=== PATIENT | male | born 1970 | race Caucasian/White ===

== ENCOUNTER → 2018-06-28 | Outpatient (CLI) | payer OTHER ==
--- NOTE | ~2018-06-28 | 2DMMODE ---
[facility] [place] [address] 2 D/M-MODE ECHOCARDIOGRAM Name: RABIA IRAHETA Room #: REG [facility]#: [id number] Admission: 06/28/18 Attend Phys: Car Munoz MD Discharge: Date of : 70 Date of Service: 06/28/18 1431 Report #: [id number] THIS REPORT FOR: //name// APPROVED REPORT Study performed: 06/28/2018 13:23:48 EXAM: Comprehensive 2D, Doppler, and color-flow Echocardiogram Patient Location: Out-Patient Room #: Echo lab 2 Status: routine BSA: 2.11 HR: 85 bpm BP: 138/86 mmHg Rhythm: NSR Other Information Study Quality: Good Indications Palpitations 2D Dimensions RVDd: 38.67 mm LVEF(%): 59.12 (>50%) IVSd: 9.26 (7-11mm) LVOT Diam: 23.32 (18-24mm) LVDd: 50.33 mm PWd: 9.44 (7-11mm) Ascending Ao: 32.81 (22-36mm) LVDs: 34.48 (25-40mm) Aortic Root: 31.07 mm IVC: 17.00 mm Cherry's LVEF: 59.12 % Volumes Left Atrial Volume (Systole) Single Plane 4CH: 29.23 mL Single Plane 2CH: 40.02 mL LA ESV Index: 19.00 mL/m2 Aortic Valve AoV Peak Eleazar.: 1.27 m/s AO Peak Gr.: 6.47 mmHg LVOT Max P.76 mmHg LVOT Max V: 1.09 m/s BRYAN Vmax: 3.66 cm2 Mitral Valve E/A Ratio: 1.3 MV Decel. Time: 229.[address] [facility] [place] [address] 2 D/M-MODE ECHOCARDIOGRAM Name: RABIA IRAHETA Room #: [facility]#: [id number] Admission: 06/28/18 Attend Phys: Car Munoz MD Discharge: Date of : 70 Date of Service: 06/28/18 1431 Report #: [id number] MV E Max Eleazar.: 0.70 m/s MV A Eleazar.: 0.52 m/s MV PHT: 66.53 ms IVRT: 87.66 ms Pulmonary Valve PV Peak Eleazar.: 1.35 m/s PV Peak Gr.: 7.32 mmHg Pulmonary Vein P Vein S: 0.57 m/s P Vein A: 0.23 m/s P Vein D: 0.36 m/s P Vein A Dur.: 78.4 msec P Vein S/D Ratio: 1.58 Left Ventricle The left ventricle is normal size. There is normal LV segmental wall motion. There is normal left ventricular wall thickness. The left ventricular systolic function is normal. The left ventricular ejection fraction is within the normal range. LVEF is 60-65%. The left ventricular diastolic function is normal. Right Ventricle The right ventricle is normal size. The right ventricular systolic function is normal. Atria The left atrium size is normal. The right atrium size is normal. Aortic Valve The aortic valve is normal in structure. No aortic regurgitation is present. There is no aortic valvular stenosis. Mitral Valve The mitral valve is normal in structure. There is no mitral valve regurgitation noted. No evidence of mitral valve stenosis. Tricuspid Valve The tricuspid valve is normal in structure. There is no tricuspid valve regurgitation noted. Pulmonic Valve The pulmonary valve is normal in structure. There is no pulmonic valvular regurgitation. Great Vessels The aortic root is normal in size. IVC is normal in size and [facility] [address] [place] [address] 2 D/M-MODE ECHOCARDIOGRAM Name: RABIA IRAHETA Room #: REG [facility]#: [id number] Admission: 06/28/18 Attend Phys: Cra Munoz MD Discharge: Date of : 70 Date of Service: 06/28/18 1431 Report #: [id number] collapses with >50% inspiration Pericardium There is no pericardial effusion. <Conclusion> The left ventricle is normal size. There is normal left ventricular wall thickness. The left ventricular systolic function is normal. The right ventricle is normal size. The left atrium size is normal. There is no aortic valvular stenosis. There is no mitral valve regurgitation noted. There is no tricuspid valve regurgitation noted. <ELECTRONICALLY SIGNED> By: Car Munoz MD 06/28/18 1431 143 143 Car Munoz MD /INF
--- NOTE | ~2018-06-28 | EXE ---
[facility] [place] [address] [place] [address] STRESS ECHOCARDIOGRAM Name: RABIA IRAHETA Room #: REG [facility]#: [id number] Admission: 06/28/18 Attend Phys: Car Munoz MD Discharge: Date of : 70 Date of Service: 06/28/18 1445 Report #: [id number] THIS REPORT FOR: //name// APPROVED REPORT Study performed: 06/28/2018 13:42:25 Exam: Stress Echocardiogram Indication: Palpitations Patient Location: Out-Patient Stress Nurse: Sarah Mckeon RN Room #: Echo lab 2 Status: routine Ht: 5 ft 8 in HR: 84 bpm BP: 138/86 mmHg Rhythm: NSR Medical History Allergies: No known drug allergies Exercise History: Physically active Procedure The patient underwent an Exercise Stress Test using the Tc Protocol. Blood pressure, heart rate, and EKG were monitored. An Echocardiogram was performed by voip technician in four stages in quad fashion. At peak stress, four selected images were obtained and placed side by side with resting images for comparison. Stress Test Details Stress Test: Exercise stress testing was performed using a Tc protocol. HR Resting HR: 84 bpm Max Heart Rate (APMHR): 172 bpm Max HR Achieved: 173 bpm Target HR (85% APMHR): 146 bpm % of APMHR: 100 Recovery HR: 113 bpm HR response to stress: Normal HR response to stress BP Resting BP: 138/86 mmHg Max BP: 176/86 mmHg Recovery BP: 140/80 mmHg ECG [facility] [address] [place] [address] STRESS ECHOCARDIOGRAM Name: RABIA IRAHETA Room #: REG [facility]#: [id number] Admission: 06/28/18 Attend Phys: Car Munoz MD Discharge: Date of : 70 Date of Service: 06/28/18 1445 Report #: [id number] Resting ECG: Sinus Rhythm Stress ECG: Sinus Rhythm ST Change: Non-ischemic Clinical Reason for Termination: Maximal effort Exercise duration: 10 min 31 sec Highest Stage Achieved: Stage 4: 4.2 mph at 16% grade. Exercise capacity: 13.4 METs Overall Exercise Capacity for Age: Good Pre-Stress Echo The resting Echocardiogram showed normal left ventricular contractility with an estimated Ejection Fraction of about >55%. Normal wall motion in all segments on baseline images. Post-Stress Echo The stress Echocardiogram showed normal left ventricular contractility with an estimated Ejection Fraction of about 65-70%. Normal augmentation of wall motion in all segments on post stress images. Clinical Normal augmentation of myocardial wall segments using a 17 segment model. No clinical or ECG evidence for ischemia. Conclusion Clinical Response: Non-ischemic Exercise Capacity: Above average Stress ECG Response: Non-ischemic Stress Echo Images: Non-ischemic The left ventricle is normal in size and wall thickness in both the rest and stress images. No prior study available for comparison. Other Information Study Quality: Good <Conclusion> The left ventricle is normal in size and wall thickness in both the rest and stress images. <ELECTRONICALLY SIGNED> By: Car Munoz MD 06/28/18 1445 1445 1445 Car Munoz MD /INF
== END ==
LOC: CV 10:44
DX: R00.2 Palpitations (principal)